=== PATIENT | female | born 1985 | race Caucasian/White ===

== ENCOUNTER 2024-04-11 13:48 | Outpatient (CLI) | payer OTHER | END 2024-04-11 13:49 | disposition home or self-care (01) | LOC: CSHRAD 13:48 | PROVIDERS: ATTEND Internal Medicine | DX: K80.20 Calculus of gallbladder without cholecystitis without obstruction (principal); R10.13 Epigastric pain; R10.11 Right upper quadrant pain; N13.2 Hydronephrosis with renal and ureteral calculous obstruction; K76.9 Liver disease, unspecified | CPT/HCPCS: 76700 ==